=== PATIENT | female | born 1980 | race Caucasian/White ===

== ENCOUNTER 2016-09-07 17:39 | Emergency (ER) | payer MEDICAID ==
[2016-09-07] MEDS ORDERED: humuLIN REG INSULIN ONE (21:24)
[2016-09-07] MEDS ORDERED: TRAMADOL 50 MG TAB ONE (21:25)
[2016-09-07] MEDS ORDERED: CYCLOBENZAPRINE 10 MG TAB ONE (21:25)
== END 2016-09-07 22:55 | disposition home or self-care (01) ==
LOC: ER 17:39
DX: S16.1XXA Strain of muscle, fascia and tendon at neck level, initial encounter (principal); M54.5 Low back pain; W03.XXXA Other fall on same level due to collision with another person, initial encounter; Y04.2XXA Assault by strike against or bumped into by another person, initial encounter; Y92.009 Unspecified place in unspecified non-institutional (private) residence as the place of occurrence of the external cause; F17.210 Nicotine dependence, cigarettes, uncomplicated
CPT/HCPCS: 72050; 72100; 82947; 96372